=== PATIENT | female | born 1985 | race Caucasian/White ===

== ENCOUNTER 2017-04-03 16:56 | Emergency (ER) | payer MEDICAID ==
[~2017-04-03] VITALS: Ht 154.9 cm; Wt 68.0 kg
[2017-04-03 17:03] VITALS: Ht 154.9 cm; Wt 68.0 kg
[2017-04-03 18:25] LABS: BASOPHIL % 0.7 % (0-2); PLATELET COUNT 251 x10^3mcL (130-400); RED CELL DISTRIBUTION WIDTH 13.2 % (11.5-14.5)
[2017-04-03 18:38] LABS: CALCIUM 8.5 mg/dL (8.5-10.1); CARBON DIOXIDE 26.3 mmol/L (21-32); CHLORIDE SERUM 104 mmol/L (98-107); CREATININE SERUM 0.8 mg/dL (0.6-1.0); GFR1 > 60 mL/min; GLUCOSE SERUM 92 mg/dL (74-106); POTASSIUM SERUM 3.9 mmol/L (3.5-5.1); SODIUM SERUM 137 mmol/L (136-145)
[2017-04-03 18:42] LABS: ALKALINE PHOSPHATASE 43 U/L (46-116); ALT/SGPT 23 U/L (14-59); AMYLASE 55 U/L (25-115); AST/SGOT 20 U/L (15-37); BILIRUBIN TOTAL 0.14 mg/dL (0.20-1.00); LIPASE 89 IU/L (73-393); TOTAL PROTEIN, SERUM 7.2 g/dL (6.4-8.2)
[2017-04-03 18:43] LABS: ALBUMIN 3.3 g/dL (3.4-5.0)
[2017-04-03 19:15] LABS: UA SPECIFIC GRAVITY 1.025 (1.005-1.035); microscopic required? YES; urine erythrocyte 3+ (NEGATIVE)
[2017-04-03 21:26] VITALS: BP 127/74
== END 2017-04-03 21:25 | disposition home or self-care (01) ==
LOC: ED 16:56
PROVIDERS: Emergency Medicine
DX: O20.0 Threatened abortion (principal); O34.80 Maternal care for other abnormalities of pelvic organs, unspecified trimester; N83.11 Corpus luteum cyst of right ovary; O25.10 Malnutrition in pregnancy, unspecified trimester; Z3A.00 Weeks of gestation of pregnancy not specified
CPT/HCPCS: 83880; J7030

== ENCOUNTER 2019-10-15 09:52 | Emergency (ER) | payer BC ==
[~2019-10-15] VITALS: Ht 154.9 cm; Wt 77.1 kg
[2019-10-15 11:55] VITALS: BP 132/72
== END 2019-10-15 11:55 | disposition home or self-care (01) ==
LOC: ED 09:52
DX: R10.32 Left lower quadrant pain (principal); R07.89 Other chest pain; V49.49XA Driver injured in collision with other motor vehicles in traffic accident, initial encounter; Y93.I9 Activity, other involving external motion; Y92.413 State road as the place of occurrence of the external cause; Y99.8 Other external cause status

== ENCOUNTER 2019-10-18 22:06 | Emergency (ER) | payer BC ==
[~2019-10-18] VITALS: Ht 154.9 cm; Wt 80.7 kg
[2019-10-18 22:16] VITALS: Ht 154.9 cm; Wt 80.7 kg
[2019-10-19 02:17] VITALS: BP 149/102
== END 2019-10-19 02:17 | disposition home or self-care (01) ==
LOC: ED 22:06
DX: S20.212A Contusion of left front wall of thorax, initial encounter (principal); Z98.890 Other specified postprocedural states; V49.9XXA Car occupant (driver) (passenger) injured in unspecified traffic accident, initial encounter; Y93.89 Activity, other specified; Y92.89 Other specified places as the place of occurrence of the external cause; Y99.8 Other external cause status